=== PATIENT | male | born 1975 | race Caucasian/White ===

== ENCOUNTER 2021-06-09 13:30 | Emergency (ER) | payer OTHER, SELFPAY ==
[2021-06-09 13:41] VITALS: BP 139/79; PULSE 84; RESP 14; TEMP 36.4; O2SAT 99
--- NOTE | 2021-06-09 14:16 | ED.SKABFB ---
HPI - Skin/Abscess/Foreign Bdy General Chief complaint: Skin/Abscess/Foreign Body Stated complaint: right foot fb in bottom Source: patient and RN notes reviewed Mode of arrival: ambulatory History of Present Illness HPI narrative: This is a 45-year-old male who presented to urgent care with complaints left foot pain due to injury. 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 He notes this morning he stepped on if developed pain to that left foot when bearing weight. No neurovascular deficiency noted, pulses palpable, capillary refill within normal limits. Related Data Home Medications Medication Instructions Recorded Confirmed atorvastatin 20 mg PO DAILY 06/09/21 06/09/21 Allergies Allergy/AdvReac Type Severity Reaction Status Date / Time varenicline [From Chantix] AdvReac Nausea and Verified 06/09/21 13:50 Vomiting Review of Systems Review of Systems: A 14 organ system Review of Systems was performed and pertinent positives included in the HPI, otherwise remaining ROS is negative. Exam Narrative: GENERAL: This is a well-nourished, well-developed patient, in no apparent distress. HEAD: normocephalic, atraumatic. EYES: PERRL. Sclera clear/white. Vision is grossly intact. EARS: External ears normal, auditory canals clear and without drainage, TMs normal without perforation. Hearing grossly intact. NOSE: External nose normal with no obvious nasal discharge, nares without redness, no rhinorrhea. THROAT: Mucous membranes moist, posterior pharynx clear. NECK: Neck supple, non-tender without lymphadenopathy, masses or thyromegaly. CARDIOVASCULAR: Regular rate and rhythm without murmurs, gallops, or rubs. RESPIRATORY: Clear to auscultation. Breath sounds equal bilaterally. No wheezes, rales, or rhonchi. GASTROINTESTINAL: Abdomen soft, non-tender, nondistended. Bowel sounds are active. No hepato-splenomegaly, or palpable masses. No guarding. SKIN: Small puncture wound to the sole near the big toe NEURO: awake, alert, and oriented to person, place and time. There were no obvious focal neurologic abnormalities. Steady gait EXTREMITIES: Normal range of motion. No edema. No calf tenderness. Negative Homans sign bilaterally. BACK: Nontender without deformity or crepitance. No flank tenderness. Course Course Emergency Course: Foreign object removed from sole left foot Vital Signs Vital signs: Vital Signs Temperature 97.6 F 06/09/21 13:41 Pulse Rate 84 06/09/21 13:41 Respiratory Rate 14 06/09/21 13:41 Blood Pressure 139/79 06/09/21 13:41 Pulse Oximetry 99 06/09/21 13:41 Temperature 97.6 F 06/09/21 13:41 Pulse Rate 84 06/09/21 13:41 Respiratory Rate 14 06/09/21 13:41 Blood Pressure 139/79 06/09/21 13:41 Pulse Oximetry 99 06/09/21 13:41 Procedures Other Procedure Procedure 1: Other Procedure: Foreign object removal from the sole of the left foot with forceps. 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 Patient discharged with instructions on how to identify infection. Discharge Plan Discharge Clinical Impression: Injury, foot Qualifiers: Encounter type: initial encounter Laterality: left Qualified Code(s): S99.922A - Unspecified injury of left foot, initial encounter Patient Disposition: Home, Self-Care Condition: Stable Instructions: Antibiotic Form, Puncture Wound in the Foot (ED) Additional Instructions: Notify your provider of any signs and symptoms of infection: Fever Foul Odor Discharge Heat at the Site: Increase in Pain: Pus Redness and Swelling Prescriptions: No Action atorvastatin 20 mg Tablet 20 mg PO DAILY RF: 0 Follow-up/Referrals: Corrine,Farhat Mckeon MD [Primary Care Provider] - Time of Dispositio
== END 2021-06-09 14:21 | disposition home or self-care (01) ==
PROVIDERS: Emergency Provider Nurse Practitioner; PCP Internal Medicine
DX: S91.342A Puncture wound with foreign body, left foot, initial encounter (principal); W26.8XXA Contact with other sharp object(s), not elsewhere classified, initial encounter
CPT/HCPCS: 99212; G0463